=== PATIENT | male | born 1990 | race Caucasian/White ===

== ENCOUNTER 2018-12-27 21:53 | Emergency (ER) | payer OTHER ==
[2018-12-27 23:54] LABS: ABSOLUTE BASOPHILS # (AUTO) 0.1 10^3/uL (0.0-0.2); ABSOLUTE EOSINOPHILS # (AUTO) 0.4 10^3/uL (0.0-0.6); ABSOLUTE LYMPHOCYTES (AUTO) 1.2 10^3/uL (0.5-4.7); ABSOLUTE MONOCYTES (AUTO) 1.1 10^3/uL (0.1-1.4); ABSOLUTE NEUT (AUTO) 13.2 10^3/uL (1.7-8.2); BASOPHILS % (AUTO) 0.3 % (0-2); EOSINOPHILS % (AUTO) 2.2 % (0-6); HEMATOCRIT 39.3 % (37.9-51.0); HEMOGLOBIN 13.5 g/dL (13.5-17.0); LYMPHOCYTES % (AUTO) 7.8 % (13-45); MEAN CORPUSCULAR HEMOGLOBIN 28.7 pg (27.0-33.4); MEAN CORPUSCULAR HGB CONC 34.3 g/dL (32.0-36.0); MEAN CORPUSCULAR VOLUME 84 fl (80-97); MONOCYTES % (AUTO) 6.6 % (3-13); PLATELET COUNT 429 10^3/uL (150-450); RED CELL DISTRIBUTION WIDTH 12.8 % (11.5-14.0); SEGMENTED NEUTROPHILS % (AUTO) 83.1 % (42-78); TOTAL CELLS COUNTED % (AUTO) 100 %; WHITE BLOOD COUNT 15.9 10^3/uL (4.0-10.5)
--- NOTE | 2018-12-28 00:08 | RADIOLOGY REPORT (SQ) ---
EXAM DESCRIPTION: XR ABDOMEN 1 VIEW (KUB) COMPLETED DATE/TME: 12/27/2018 23:38 CLINICAL HISTORY: 28 years, Male, no BM in 10 days COMPARISON: None. NUMBER OF VIEWS: 2 TECHNIQUE: AP abdomen LIMITATIONS: None. FINDINGS: Nonspecific, nonobstructive bowel gas pattern. Surgical clips in the right lower quadrant. Evaluation for free air limited on a supine view. Nondilated air-filled loops of bowel could reflect mild ileus. Osseous structures are intact IMPRESSION: Possible mild ileus copyright 2010 [employer]- All Rights Reserved
[2018-12-28 00:10] LABS: ALANINE AMINOTRANSFERASE 39 U/L (21-72); ALBUMIN 4.3 g/dL (3.5-5.0); ALKALINE PHOSPHATASE 108 U/L (38-126); ANION GAP 11 (5-19); ASPARTATE AMINO TRANSFERASE 25 U/L (17-59); BILIRUBIN,DIRECT 0.2 mg/dL (0.0-0.4); BILIRUBIN,TOTAL 0.3 mg/dL (0.2-1.3); BLOOD UREA NITROGEN 12 mg/dL (7-20); CALCIUM 9.7 mg/dL (8.4-10.2); CARBON DIOXIDE 24 mmol/L (22-30); CHLORIDE 105 mmol/L (98-107); GLUCOSE 103 mg/dL (75-110); POTASSIUM 4.5 mmol/L (3.6-5.0); SODIUM 139.9 mmol/L (137-145); TOTAL PROTEIN 7.5 g/dL (6.3-8.2)
[2018-12-28 00:19] LABS: LIPASE 2854.3 U/L (23-300)
[2018-12-28] MEDS ORDERED: ONDANSETRON ODT 4 MG TAB (6 TAB/ER DISP) PO PRN (00:56)
[2018-12-28] MEDS ORDERED: HYDROCODONE/ACETAMINOPHEN 5-325 MG (6 TAB/ER DISP) PO PRN (00:56)
[2018-12-28 01:24] VITALS: BP 141/83
--- NOTE | 2018-12-28 01:29 | ER Document Report ---
Entered by ARELIS HENRY SCRIBE 12/28/18 0102 Acting as scribe for:ZONIA AGUILAR DO ED General - General Chief Complaint: Abdominal Pain Stated Complaint: ABDOMINAL PAIN Time Seen by Provider: 12/28/18 00:46 Mode of Arrival: Ambulatory Information source: Patient Notes: Patient is a 28 year old male with a h/o degenerative disc disease presents to the emergency department complaining of abdominal pain and mid-back pain. Patient states 10 days ago, he saw a provider in [place] complaining of epigastric abdominal pain and was diagnosed with a muscle strain and discharged home with ibuprofen and muscle relaxers which did not relieve his pain. Patient states yesterday, the pain began to radiate to the left upper quadrant and straight through into his back further stating his back pain is worse than his abdominal pain. He states his abdominal pain is exacerbated with eating any food. He also complains of nausea and decreased bowel movements further stating he last had a small bowel movement 3 days ago. He denies any fevers, vomiting, blood in stool or decreased flatulence. Admits to drinking alcohol a few times a week but states he has not had increased alcohol use recently. Denies any history of pancreatitis. Patient is currently prescribed Ibuprofen, Baclofen, Sildenafil Citrate, Gabapentin, Cymbalta and Zofran. - Related Data Allergies/Adverse Reactions: No Known Allergies Allergy (Verified 12/28/18 00:47) Past Medical History - General Information source: Patient - Social History Smoking Status: Never Smoker Frequency of alcohol use: Occasional Drug Abuse: None Family History: Reviewed & Not Pertinent Patient has suicidal ideation: No Patient has homicidal ideation: No Past Surgical History: Reports: Hx Appendectomy Review of Systems - Review of Systems Constitutional: No symptoms reported EENT: No symptoms reported Cardiovascular: No symptoms reported Respiratory: No symptoms reported Gastrointestinal: See HPI, Abdominal pain, Nausea, Last bowel movement Genitourinary: No symptoms reported Male Genitourinary: No symptoms reported Musculoskeletal: See HPI, Back pain Skin: No symptoms reported Hematologic/Lymphatic: No symptoms reported Neurological/Psychological: No symptoms reported -: Yes All other systems reviewed and negative Physical Exam - Vital signs Vitals: Temp Pulse Resp BP Pulse Ox 98.5 F 73 18 130/70 H 97 12/27/18 22:25 12/27/18 22:25 12/27/18 22:25 12/27/18 22:25 12/27/18 22:25 - Notes Notes: GENERAL: Alert, interacts well. No acute distress. HEAD: Normocephalic, atraumatic. EYES: Pupils equal, round, and reactive to light. Extraocular movements intact. ENT: Oral mucosa moist, tongue midline. NECK: Full range of motion. Supple. Trachea midline. LUNGS: Clear to auscultation bilaterally, no wheezes, rales, or rhonchi. No respiratory distress. HEART: Regular rate and rhythm. No murmurs, gallops, or rubs. ABDOMEN: Soft, epigastric tenderness to palpation. Non-distended. Bowel sounds present in all 4 quadrants. No guarding, rigidity, or rebound. No Neil's sign, no Simental Pastrana's sign. EXTREMITIES: Moves all 4 extremities spontaneously. No edema, radial and dorsalis pedis pulses 2/4 bilaterally. No cyanosis. NEUROLOGICAL: Alert and oriented x3. Normal speech. PSYCH: Normal affect, normal mood. SKIN: Warm, dry, normal turgor. No rashes or lesions noted. Course - Re-evaluation Re-evalutation: 12/28/18 00:58 CBC shows leukocytosis of 15.9, CMP unremarkable, lipase elevated at 2854.3, KUB shows ileus but no signs of obstruction. Patient's abdominal exam is relatively benign, only mild tenderness palpation in the epigastrium without any tenderness palpation of the right upper quadrant. Examination and history and labs are all consistent with pancreatitis. No suspicion for this to be coming from choledocholithiasis as the patient has absolutely no right upper quadrant tenderness to palpation and liver enzymes are normal. Discussed with patient that there is no need for further imaging studies at this time, he is agreeable to discharge to home, clear liquid and low-fat diet with pain and nausea medication to control symptoms. Patient will return for fever, inability to tolerate liquids, worsening pain or any new or concerning symptoms. Also discussed that the patient should be taking MiraLAX while taking the narcotics and he will return for any new or concerning symptoms. - Vital Signs Vital signs: Temp Pulse Resp BP Pulse Ox 97.7 F 63 12 141/83 H 100 12/28/18 01:23 12/28/18 01:23 12/28/18 01:12/28/18 01:19 01:23 - Laboratory Result Diagrams: 12/27/18 23:26 12/27/18 23:26 Laboratory results interpreted by me: 12/27/18 12/27/18 23:26 23:26 WBC 15.9 H Seg Neutrophils % 83.1 H Lymphocytes % 7.8 L Absolute Neutrophils 13.2 H Lipase 2854.3 H Discharge - Discharge Clinical Impression: Ileus Pancreatitis Qualifiers: Chronicity: acute Pancreatitis type: unspecified pancreatitis type Acute pancreatitis complication: no infection or necrosis Qualified Code(s): K85.90 - Acute pancreatitis without necrosis or infection, unspecified Condition: Stable Disposition: HOME, SELF-CARE Additional Instructions: Pancreatitis Pancreatitis is an inflammation of the pancreas, an organ at the back of your abdomen. The pancreas produces insulin and enzymes that digest your food. Pancreatitis can be caused by gallstones in the bile duct, by alcohol or viruses, or by excess fat or calcium in the blood stream. Occasionally, pancreatitis occurs when a stomach ulcer mendez through into the pancreas. We try to find the cause of pancreatitis, but some tests can't be done until the pancreas heals. The usual symptoms of pancreatitis are pain in the pit of the stomach that goes straight through to the back, vomiting, and low-grade fever. Severe cases require hospital admission, but many patients with mild pancreatitis do well at home. You will probably need medicine for pain and for vomiting. Sometimes we prescribe medicine to decrease stomach acid secretion and to decrease flow of pancreatic juices. Start with a diet of clear liquids (soda pop, juices). When the pain is decreasing, you can add some simple starches (potato, toast, applesauce). Avoid proteins and fats until you are completely painfree. When you're better, your doctor may suggest treatment to prevent future pancreatitis (such as gallbladder removal). Avoid alcohol forever. Get immediate treatment for any future episodes. Contact your doctor at once or return here if you have increasing pain, shortness of breath, general swelling, increasing size of the abdomen, continued vomiting, muscle spasms, or other new symptoms. The Humble will help to treat your pain, but it can cause constipation. The Zofran will treat your nausea and vomiting. Please dissolve 1 scoop of MiraLAX in a glass of water once a day to treat constipation. You may increase to twice a day if needed to create soft bowel movements and you may decrease to every other day if you develop diarrhea. You should also take a dose every time you take a dose of the Humble. Prescriptions: Ondansetron [Zofran Odt 4 mg Tablet] 1 - 2 tab PO Q4H PRN #15 tab.rapdis PRN Reason: For Nausea/Vomiting Forms: Return to Work I personally performed the services described in the documentation, reviewed and edited the documentation which was dictated to the scribe in my presence, and it accurately records my words and actions.
== END 2018-12-28 01:23 | disposition home or self-care (01) ==
LOC: ER 21:53
DX: K56.7 Ileus, unspecified (principal); K85.90 Acute pancreatitis without necrosis or infection, unspecified; R10.816 Epigastric abdominal tenderness; M54.9 Dorsalgia, unspecified; R11.0 Nausea; R19.4 Change in bowel habit; T14.8XXA Other injury of unspecified body region, initial encounter; X58.XXXA Exposure to other specified factors, initial encounter; Z79.899 Other long term (current) drug therapy
CPT/HCPCS: 36415; 74018; 80053; 83690; 85025; 99284

== ENCOUNTER 2018-12-30 03:14 | Emergency (ER) | payer OTHER ==
[2018-12-30 06:11] LABS: ABSOLUTE EOSINOPHILS # (AUTO) 0.2 10^3/uL (0.0-0.6); ABSOLUTE LYMPHOCYTES (AUTO) 1.3 10^3/uL (0.5-4.7); ABSOLUTE MONOCYTES (AUTO) 1.3 10^3/uL (0.1-1.4); ABSOLUTE NEUT (AUTO) 13.4 10^3/uL (1.7-8.2); BASOPHILS % (AUTO) 0.2 % (0-2); EOSINOPHILS % (AUTO) 1.5 % (0-6); HEMATOCRIT 39.9 % (37.9-51.0); MEAN CORPUSCULAR HEMOGLOBIN 29.2 pg (27.0-33.4); MEAN CORPUSCULAR VOLUME 83 fl (80-97); MONOCYTES % (AUTO) 8.1 % (3-13); PLATELET COUNT 484 10^3/uL (150-450); RED BLOOD COUNT 4.79 10^6/uL (4.35-5.55); RED CELL DISTRIBUTION WIDTH 12.6 % (11.5-14.0); SEGMENTED NEUTROPHILS % (AUTO) 82.2 % (42-78); TOTAL CELLS COUNTED % (AUTO) 100 %; WHITE BLOOD COUNT 16.3 10^3/uL (4.0-10.5)
[2018-12-30 06:13] LABS: APPEARANCE,URINE SLIGHTLY-CLOUDY; BILIRUBIN,URINE NEGATIVE (NEGATIVE); COLOR,URINE YELLOW; GLUCOSE, URINE NEGATIVE (NEGATIVE); KETONES,URINE TRACE mg/dL (NEGATIVE); LEUKOCYTE ESTERASE,URINE NEGATIVE (NEGATIVE); NITRITE,URINE NEGATIVE (NEGATIVE); PROTEIN,URINE NEGATIVE (NEGATIVE); URINE SPECIFIC GRAVITY 1.016; UROBILINOGEN,URINE NEGATIVE mg/dL (<2.0)
[2018-12-30 06:28] LABS: ALANINE AMINOTRANSFERASE 28 U/L (21-72); ALBUMIN 4.6 g/dL (3.5-5.0); ALKALINE PHOSPHATASE 119 U/L (38-126); ANION GAP 12 (5-19); ASPARTATE AMINO TRANSFERASE 17 U/L (17-59); BILIRUBIN,DIRECT 0.3 mg/dL (0.0-0.4); BILIRUBIN,TOTAL 0.6 mg/dL (0.2-1.3); BLOOD UREA NITROGEN 12 mg/dL (7-20); CALCIUM 10.4 mg/dL (8.4-10.2); CARBON DIOXIDE 29 mmol/L (22-30); CHLORIDE 100 mmol/L (98-107); GLUCOSE 96 mg/dL (75-110); LIPASE 1453.6 U/L (23-300); POTASSIUM 4.3 mmol/L (3.6-5.0); SODIUM 140.5 mmol/L (137-145)
[2018-12-30] MEDS ORDERED: NORMAL SALINE 1000 ML 1,000 ML IV ONE (07:04)
[2018-12-30] MEDS ORDERED: HYDROMORPHONE HCL INJ/PF 2 MG/ML AMPULE IV ONE (07:04)
[2018-12-30] MEDS ORDERED: ONDANSETRON HCL INJ/PF 4 MG/2 ML SDV IV ONE (07:04)
[2018-12-30 07:14] LABS: TRIGLYCERIDES 99 mg/dL (<150)
--- NOTE | 2018-12-30 07:48 | ER Document Report ---
Entered by ARELIS HENRY SCRIBE 12/30/18 0721 Acting as scribe for:ADDIS VALDIVIA MD ED General - General Chief Complaint: Abdominal Pain Stated Complaint: ABDOMINAL PAIN Time Seen by Provider: 12/30/18 06:51 Primary Care Provider: LELE NAIDU MD [Primary Care Provider] - 01/01/19 Mode of Arrival: Ambulatory Information source: Patient Notes: Patient is a 28 year old male with degenerative disc disease presents to the emergency department complaining of left sided abdominal pain onset 12 days ago. Patient presented to the emergency department 2 days ago complaining of identical symptoms and was diagnosed with pancreatitis and discharged home with Zofran and [place]. He states there was no change in his pain until this morning w hen the pain became more severe. He states the [place] provided brief and little relief of his pain. He states the pain radiates into his left back and denies any relieving or exacerbating factors. He also complains of nausea. He denies any fevers or vomiting. TRAVEL OUTSIDE OF THE [place] IN LAST 30 DAYS: No - Related Data Allergies/Adverse Reactions: No Known Allergies Allergy (Verified 12/30/18 07:28) Past Medical History - General Information source: Patient - Social History Smoking Status: Never Smoker Cigarette use (# per day): No Chew tobacco use (# tins/day): No Smoking Education Provided: No Frequency of alcohol use: Occasional Family History: Reviewed & Not Pertinent Patient has suicidal ideation: No Patient has homicidal ideation: No GI Medical History: Reports: Hx Pancreatitis Past Surgical History: Reports: Hx Appendectomy Review of Systems - Review of Systems Constitutional: No symptoms reported EENT: No symptoms reported Cardiovascular: No symptoms reported Respiratory: No symptoms reported Gastrointestinal: See HPI, Abdominal pain Genitourinary: No symptoms reported Male Genitourinary: No symptoms reported Musculoskeletal: See HPI, Back pain Skin: No symptoms reported Hematologic/Lymphatic: No symptoms reported Neurological/Psychological: No symptoms reported -: Yes All other systems reviewed and negative Physical Exam - Vital signs Vitals: Temp Pulse Resp BP Pulse Ox 97.8 F 82 24 H 137/69 H 99 12/30/18 03:18 12/30/18 03:18 12/30/18 03:18 12/30/18 03:18 12/30/18 03:18 - Notes Notes: GENERAL: Alert, interacts well. No acute distress. HEAD: Normocephalic, atraumatic. EYES: Pupils equal, round, and reactive to light. Extraocular movements intact. ENT: Oral mucosa moist, tongue midline. NECK: Full range of motion. Supple. Trachea midline. LUNGS: Clear to auscultation bilaterally, no wheezes, rales, or rhonchi. No respiratory distress. HEART: Regular rate and rhythm. No murmurs, gallops, or rubs. ABDOMEN: Soft, tender with deep palpation to the epigastrium to the middle of the LUQ. Non-distended. Hyperactive bowel sounds. No guarding, rigidity, or rebound. EXTREMITIES: Moves all 4 extremities spontaneously. No edema, radial and dorsalis pedis pulses 2/4 bilaterally. No cyanosis. NEUROLOGICAL: Alert and oriented x3. Normal speech. PSYCH: Normal affect, normal mood. SKIN: Warm, dry, normal turgor. No rashes or lesions noted. BACK: No CVA tenderness to percussion. Course - Re-evaluation Re-evalutation: 12/30/18 10:07 Dr. Naidu came by to see the patient when he was in the emergency room seeing 1 of his admissions. After all the lab work and ultrasound was back, we discussed case and the patient will go home and continue outpatient treatment with stronger pain medication. He will follow-up in the office on Friday. - Vital Signs Vital signs: Temp Pulse Resp BP Pulse Ox 97.8 F 68 18 123/65 98 12/30/18 09:28 12/30/18 09:28 12/30/18 09:28 12/30/18 09:28 12/30/18 09:28 - Laboratory Result Diagrams: 12/30/18 05:50 12/30/18 05:50 Laboratory results interpreted by me: 12/30/18 12/30/18 12/30/18 05:50 05:50 05:50 WBC 16.3 H Plt Count 484 H Seg Neutrophils % 82.2 H Lymphocytes % 8.0 L Absolute Neutrophils 13.4 H Calcium 10.4 H Lipase 1453.6 H Urine Ketones TRACE H - Diagnostic Test Radiology reviewed: Reports reviewed - Gallbladder ultrasound is unremarkable, pancreas is obscured by overlying bowel gas. Discharge - Discharge Clinical Impression: Pancreatitis Qualifiers: Chronicity: acute Pancreatitis type: idiopathic Acute pancreatitis complication: unspecified Qualified Code(s): K85.00 - Idiopathic acute pancreatitis without necrosis or infection Abdominal pain Qualifiers: Abdominal location: upper abdomen, unspecified Qualified Code(s): R10.10 - Upper abdominal pain, unspecified Condition: Stable Disposition: HOME, SELF-CARE Additional Instructions: Pancreatitis Pancreatitis is an inflammation of the pancreas, an organ at the back of your abdomen. The pancreas produces insulin and enzymes that digest your food. Pancreatitis can be caused by gallstones in the bile duct, by alcohol or viruses, or by excess fat or calcium in the blood stream. Occasionally, pancreatitis occurs when a stomach ulcer mendez through into the pancreas. We try to find the cause of pancreatitis, but some tests can't be done until the pancreas heals. The usual symptoms of pancreatitis are pain in the pit of the stomach that goes straight through to the back, vomiting, and low-grade fever. Severe cases require hospital admission, but many patients with mild pancreatitis do well at home. You will probably need medicine for pain and for vomiting. Sometimes we prescribe medicine to decrease stomach acid secretion and to decrease flow of pancreatic juices. Start with a diet of clear liquids (soda pop, juices). When the pain is decreasing, you can add some simple starches (potato, toast, applesauce). Avoid proteins and fats until you are completely painfree. When you're better, your doctor may suggest treatment to prevent future pancreatitis (such as gallbladder removal). Avoid alcohol forever. Get immediate treatment for any future episodes. Contact your doctor at once or return here if you have increasing pain, shortness of breath, general swelling, increasing size of the abdomen, continued vomiting, muscle spasms, or other new symptoms. Take the pain medicine as prescribed when needed. Take the nausea medicine as needed. Call Dr. Naidu's office today to schedule an appointment for Friday. RETURN TO THE EMERGENCY ROOM IF ANY NEW OR WORSENING SYMPTOMS. Prescriptions: Hydromorphone HCl [Dilaudid 2 mg Tablet] 2 mg PO Q4 PRN #15 tablet PRN Reason: Ondansetron [Zofran Odt 4 mg Tablet] 1 - 2 tab PO Q4H #20 tab.rapdis Forms: Return to Work Referrals: LELE NAIDU MD [Primary Care Provider] - 01/01/19 Scribe Attestation: 12/30/18 08:07 I personally performed the services described in the documentation, reviewed and edited the documentation which was dictated to the scribe in my presence, and it accurately records my words and actions. I personally performed the services described in the documentation, reviewed and edited the documentation which was dictated to the scribe in my presence, and it accurately records my words and actions.
--- NOTE | 2018-12-30 09:01 | RADIOLOGY REPORT (SQ) ---
EXAM DESCRIPTION: U/S ABDOMEN LIMITED W/O DOP COMPLETED DATE/TIME: 12/30/2018 8:47 am REASON FOR STUDY: Pancreatitis COMPARISON: None. TECHNIQUE: Dynamic and static grayscale images acquired of the abdomen and recorded on PACS. Additio nal selected color Doppler and spectral images recorded. LIMITATIONS: None. FINDINGS: PANCREAS: The pancreas is obscured by overlying bowel gas. LIVER: The liver measures 17.3 cm in length, upper limits of normal size. No masses. Echotexture no rmal. LIVER VASCULATURE: Normal directional flow of the main portal vein and hepatic veins. GALLBLADDER: No stones. The gallbladder wall measures 2.0 mm, normal wall thickness. No pericholecys tic fluid. ULTRASOUND-DETECTED SCHROEDER'S SIGN: Negative. INTRAHEPATIC DUCTS AND COMMON DUCT: CBD measures 2.0 mm in diameter, normal. The intrahepatic ducts normal caliber. No filling defects. INFERIOR VENA CAVA: Normal flow. AORTA: No aneurysm. RIGHT KIDNEY: The right kidney measures 11.5 cm in length, normal size. Normal echogenicity. No ana id or suspicious masses. No hydronephrosis. No calcifications. PERITONEAL AND RIGHT PLEURAL SPACE: No ascites or effusions. OTHER: No other significant findings. IMPRESSION: 1. The pancreas is obscured by overlying bowel gas. If clinically indicated, additiona l imaging with CT pancreas with IV contrast suggested. 2. Examination is otherwise unremarkable sonographically. TECHNICAL DOCUMENTATION: JOB ID: [id number] [employer]- All Rights Reserved Reading location - IP/workstation name: [email or web address]
[2018-12-30 09:30] VITALS: BP 123/65
== END 2018-12-30 10:10 | disposition home or self-care (01) ==
LOC: ER 03:14
DX: K85.00 Idiopathic acute pancreatitis without necrosis or infection (principal); R10.12 Left upper quadrant pain; M54.9 Dorsalgia, unspecified; R10.816 Epigastric abdominal tenderness; R10.812 Left upper quadrant abdominal tenderness; Z90.49 Acquired absence of other specified parts of digestive tract
CPT/HCPCS: 99284; 96361; 96374; 96375; 36415; 83690; 84478; 85025; 80053; 81001; 76705; J1170; J2405; J7030